=== PATIENT | female | born 1955 | race Hispanic/Latino ===

== ENCOUNTER 2019-08-23 08:54 | Inpatient (IN) | payer MEDICARE, BC ==
[2019-08-23] MEDS ORDERED: Ondansetron PF 4 MG/2 ML Vial ONE (08:59)
[2019-08-23] MEDS ORDERED: Dexamethasone 10 MG/ML VIAL ONE (09:16)
--- NOTE | 2019-08-23 09:16 | CT ---
Head CT without contrast 08/23/2019: Comparison: None HISTORY: Left facial droop TECHNIQUE: Axial CT imaging at 5 mm intervals from vertex through skull base without contrast FINDINGS: There is a large area of hypodensity with loss of francois-white differentiation involving the majority of the MCA territory on the right, evidence of right MCA infarction. This measures at least 9.5 cm in AP dimension and 4.8 cm in transverse dimension, involving the posterior and inferior right frontal lobe and of the majority of the right temporal lobe. There is no associated hemorrhage. There is mild mass effect with midline shift at the axial level of the septum pellucidum from right to left measuring in the 3 mm range. IMPRESSION: Evidence of acute infarction involving the majority of the MCA territory on the right. No associated hemorrhage. Mild midline shift from right to left. Short-term follow-up CT is thus advised. Results called to Dr. Hilton at 9:10 AM 08/23/2019.
[2019-08-23 09:47] LABS: #Lymphocytes 1.3 thou/uL (1.20-3.40); #Monocytes 0.6 thou/uL (0.11-0.59); #Neutrophils 8.8 thou/uL (1.40-6.50); %Basophils 0.1 % (0.0-1.0); %Eosinophils 0.1 % (0.0-10.0); %Lymphocytes 11.8 % (21.0-51.0); %Monocytes 5.7 % (0.0-10.0); %Neutrophils 82.3 % (42.0-75.0); Hemoglobin 14.1 g/dL (12.0-16.0); Mean Corpuscular HGB CONC 32.7 g/dL (32.0-36.0); Mean Corpuscular Hemoglobin 29.3 pg (27.0-31.0); Mean Corpuscular Volume 89.8 fL (78.0-98.0); Platelet Count 231 thou/uL (130-400); RBC Distribution Width 13.3 % (11.5-14.5); Red Blood Cell (RBC) Count 4.79 mill/uL (4.20-5.40); White Blood Cell (WBC) Count 10.7 thou/uL (4.8-10.8)
[2019-08-23 09:51] LABS: PTT 30.9 SEC (22.9-36.1); Prothrombin Time 13.4 SEC (12.0-14.7)
[2019-08-23 10:01] LABS: ALT (SGPT) 28 U/L (8-55); AST (SGOT) 24 U/L (5-34); Albumin 4.5 g/dL (3.4-4.8); Alkaline Phosphatase 84 U/L (40-110); Anion Gap 16 mmol/L (10-20); BUN (Urea Nitrogen) 21 mg/dL (9.8-20.1); Bilirubin, Total 0.4 mg/dL (0.2-1.2); Calc. Creatinine Clearance 0 mL/min (70-130); Calcium 9.6 mg/dL (7.8-10.44); Carbon Dioxide 24 mmol/L (23-31); Chloride 103 mmol/L (98-107); Estimated GFR-MDRD 63; Globulin 2.9 g/dL (2.4-3.5); Glucose 144 mg/dL (80-115); Potassium 3.8 mmol/L (3.5-5.1); Protein, Total 7.4 g/dL (6.0-8.3); Sodium 139 mmol/L (136-145)
[2019-08-23] MEDS ORDERED: Aspirin 300 MG Suppository ONE (10:17)
[2019-08-23 11:27] LABS: Bacteria/HPF 4+ HPF (None Seen); Bilirubin Negative (Negative); Blood, Urine Negative (Negative); Clarity Turbid (Clear); Glucose, Urine (Dipstick) Normal (Negative); Leukocyte 500 Leu/uL (Negative); Mucous/LPF Rare LPF (<2+); Nitrite Negative (Negative); Protein, Urine (Dipstick) 50 mg/dL (Neg-Trace); RBC/HPF 0-3 HPF (0-3); Squamous Epithelial None Seen HPF (0-3); Urobilinogen Normal mg/dL (Less than 2); WBC/HPF 21-50 HPF (0-3)
[2019-08-23] MEDS ORDERED: Digoxin 0.5 MG/2 ML AMP ONE (11:44)
[2019-08-23] MEDS ORDERED: Magnesium 2 GM/50 ML BAG (IN WATER) ONE (11:44)
[2019-08-23] MEDS ORDERED: Pantoprazole 40 MG VIAL ONE (14:21)
[2019-08-23] MEDS ORDERED: Ondansetron ODT 4 MG TAB SL PRN (15:45)
[2019-08-23] MEDS ORDERED: Acetaminophen 325 MG TAB PO PRN ×2 (15:45→15:50)
[2019-08-23] MEDS ORDERED: Ondansetron PF 4 MG/2 ML Vial IVP PRN ×2 (15:45→15:50)
[2019-08-23] MEDS ORDERED: Acetaminophen 650 MG Suppository PR PRN (15:50)
[2019-08-23] MEDS ORDERED: Guaifenesin DM 100-10/5 ML UDCUP PO PRN (15:50)
[2019-08-23] MEDS ORDERED: hydrALAZINE 20 MG/ML VIAL SLOW IVP PRN (15:50)
[2019-08-23] MEDS ORDERED: Senokot S 8.6-50 MG TAB PO PRN (15:50)
[2019-08-23] MEDS ORDERED: Labetalol HCl 100 MG/20 ML VIAL SLOW IVP PRN (15:50)
[2019-08-23] MEDS ORDERED: Ondansetron ODT 4 MG TAB PO PRN (15:50)
[2019-08-23 16:03] VITALS: BMI 46.8
[2019-08-23] MEDS ORDERED: Digoxin 0.5 MG/2 ML AMP SLOW IVP SCH (19:00)
--- NOTE | 2019-08-23 23:34 | CON ---
DATE OF CONSULTATION: 08/23/2019 CONSULTING PHYSICIAN: Hospitalist Service. IMPRESSION: 1. Right MCA stroke, likely secondary to a cardioembolic event. 2. Atrial fibrillation. 3. Obesity. 4. Hyperlipidemia. 5. Hypertension. 6. History of chronic vertigo. PLAN: 1. Repeat CT scan of the brain tomorrow. 2. Fluid restriction. 3. Keep head of bed elevated at least 30 degrees. 4. Start anticoagulation tomorrow if her CT is negative for any secondary hemorrhage. 5. Carotid Doppler. 6. Echocardiogram. 7. Speech therapy, physical therapy, and occupational therapy evaluations. HISTORY OF PRESENT ILLNESS: Ms. Holland is a 64-year-old woman, who awoke from sleep to find that she had her left hemiparesis. She was brought into the emergency room for evaluation. Her CT scan revealed an early area of ischemia involving the entire right MCA territory. She was noted to be in atrial fibrillation. Her blood pressure was under good control. She was admitted to the stroke unit. She has not had any stroke symptoms in the past. She is not complaining of any headache. She had some vertigo and nausea earlier that was brought on by movement. Apparently, this is a chronic issue with her. She has a DNR in place as she does not want to be on a ventilator. PAST MEDICAL HISTORY: As listed above. ALLERGIES: BACTRIM. SOCIAL HISTORY: No tobacco or alcohol use. FAMILY HISTORY: Noncontributory. MEDICATION LIST: Reviewed. REVIEW OF SYSTEMS: Ten-system review of systems is otherwise negative. PHYSICAL EXAMINATION: GENERAL: She is an obese, middle-aged woman, lying in bed, in no acute distress. VITAL SIGNS: Blood pressure 116/78, pulse 100, respirations 14, temperature 98.2. HEENT: Pupils are equal and reactive. Conjunctivae clear. Oropharynx clear. Cranium, normocephalic and atraumatic. NECK: Supple. EXTREMITIES: No cyanosis. NEUROLOGIC: She awakens easily, was conversant and follows commands appropriately. Her speech is fairly clear. She has a left facial droop. There may be some partial left visual field deficit that was somewhat inconsistently demonstrated. She has a dense hemiparesis on the left. She has significant sensory deficit of the left side as well. No abnormal movements were seen. Gait is not testable. EKG shows atrial fibrillation with a rapid ventricular response. LABORATORY DATA: Laboratory studies were reviewed. SUMMARY: This is an unfortunate middle-aged woman with fairly massive stroke. Hopefully, the cerebral edema will not get out of control to cause significant shift and herniation. I explained the gravity of the situation to her . They have an understanding and want to respect her wishes that she would not be placed on a ventilator if her respiratory status declined. I will follow up in her care. Job ID: [id number]
--- NOTE | 2019-08-24 01:00 | CON ---
DATE OF CONSULTATION: HISTORY OF PRESENT ILLNESS: The patient is an unfortunate 64-year-old woman, who presents with acute onset of left-sided weakness. The patient has a previous history of mitral valve prolapse. She has been followed previously at [facility], and seeing Dr. Taylor. She reports having occasional palpitations. She presented to the emergency room with acute onset of left-sided weakness. PAST MEDICAL HISTORY: Significant for; 1. Mitral valve prolapse. 2. Hypertension. 3. Obesity. PAST SURGICAL HISTORY: Had hernia surgery and cholecystectomy. SOCIAL HISTORY: Nonsmoker. FAMILY HISTORY: Positive family history of coronary artery disease. ALLERGIES: ALLERGIC TO BACTRIM AND TRIMETHOPRIM. MEDICATIONS: 1. Lipitor 10 at bedtime. 2. Metoprolol 100 b.i.d. 3. Losartan 100/25 daily. 4. Norvasc 10 daily. 5. Prilosec 10 daily. REVIEW OF SYSTEMS: Ten-point system otherwise unremarkable. PHYSICAL EXAMINATION: GENERAL: Obese woman, in no acute distress. VITAL SIGNS: Blood pressure 121/75. NECK: No jugular venous distention. LUNGS: Clear to auscultation. HEART: Irregular rate and rhythm. Normal S1, S2. No murmurs. ABDOMEN: Markedly distended. EXTREMITIES: Showed no edema. VASCULAR: Radial pulses are 2+. NEUROLOGIC: The patient has minimal movement in her left toes, has 0/5 strength in her left upper and lower extremities. LABORATORY RESULTS: White blood cell count 10.7, hemoglobin 14.1, hematocrit 43.0, platelets are 231. Her sodium was 139, potassium 3.8, chloride 103, bicarbonate 24, BUN 29, creatinine 0.9, glucose is 144. EKG revealed atrial fibrillation with rapid ventricular response, nonspecific ST abnormality. IMPRESSION: 1. Large cerebrovascular accident. 2. New onset atrial fibrillation. 3. Hypertension. 4. History of mitral valve prolapse. 5. Obesity. This patient presents with cerebrovascular accident. The patient is being treated with aspirin. She will need to be placed on long-term anticoagulation therapy. We will use digoxin and/or metoprolol to control heart rate. We will follow this patient with you through her hospitalization. Job ID: [id number]
--- NOTE | 2019-08-24 03:05 | PDOC.EVN ---
Event Note - Event Note Event Note: Notified yesterday evening at approximately 10 pm that patients family were concerned for episode of 19 second pause that occurred when patient receiving digoxin dose 0.25 mg. Per RN, HR was fluctuating between 90s to 120s on tele monitor. She did not receive the full dose, it was stopped immediately when she collapsed backwards onto the bed. Patients HR has remained in 90s since then and BP has been stable. Dr. Adkins was notified. remained concerned and though he was not in the room he states he feels the medication was given without monitoring of patients heart. He was reassured that the patient was being monitored by RN when medication was being administered and that HR was labile. Following discussion with on-call carrier packer, we decided to obtain digoxin level and discontinue morning dose of digoxin. Further recommendations as per Dr. Adkins. seems to be at ease with this plan. Continue to monitor. Patient resting comfortably when evaluated.
[2019-08-24 05:10] LABS: Anion Gap 13 mmol/L (10-20); BUN (Urea Nitrogen) 18 mg/dL (9.8-20.1); Calc. Creatinine Clearance 138 mL/min (70-130); Calcium 9.1 mg/dL (7.8-10.44); Carbon Dioxide 24 mmol/L (23-31); Cardiac Risk 3.6 (Less than 4.5); Chloride 105 mmol/L (98-107); Cholesterol 133 mg/dl (< 200 Desired); Estimated GFR-MDRD 71; Glucose 129 mg/dL (80-115); HDL Cholesterol 37 mg/dL (>60 Neg Risk); LDL Cholesterol, Calculated 82 mg/dL; Potassium 4.1 mmol/L (3.5-5.1); Sodium 138 mmol/L (136-145); Triglycerides 71 mg/dL (Less than 150)
[2019-08-24 05:24] LABS: Band 3 % (5-11); Hemoglobin 13.4 g/dL (12.0-16.0); Lymphocytes 14 % (21-51); MDiff Complete? YES; Mean Corpuscular HGB CONC 32.5 g/dL (32.0-36.0); Mean Corpuscular Hemoglobin 29.2 pg (27.0-31.0); Mean Corpuscular Volume 89.9 fL (78.0-98.0); Monocytes 3 % (0-10); Neutrophil 80 % (42-75); Platelet Count 238 thou/uL (130-400); Platelet Morphology Comment Appears Adequate; RBC Distribution Width 13.2 % (11.5-14.5); RBC Morphology Normal; Red Blood Cell (RBC) Count 4.58 mill/uL (4.20-5.40); White Blood Cell (WBC) Count 12.3 thou/uL (4.8-10.8)
--- NOTE | 2019-08-24 07:19 | HP ---
PRIMARY CARE PHYSICIAN: Dr. Alen Judge at [facility] when she is in town. When she is at home in [place], it is a PA named Liliane. CHIEF COMPLAINT: Left-sided weakness. HISTORY OF PRESENT ILLNESS: This is a 64-year-old white female with a past medical history of hypertension, hyperlipidemia, and mitral valve prolapse, and then about a month or two ago starting to have runs of palpitations diagnosed as atrial fibrillation by her PA in [place], not on any aspirin or anticoagulants. She had 2 or 3 runs of palpitations lasting for a significant period of time over the last 1 to 2 months, though none that she recognized the last day or two. She was staying at a hotel in [place] while doing some work at [employer], which she intermittently does. She was conversing with her over the phone last night during the football game, was not having any symptoms or difficulties, and around 11 o'clock last night she stopped responding to his texts. He thought she had gone to sleep, however, this morning she did not show up at work. They went to her hotel room and found her with left-sided weakness, left facial droop, and some confusion and slurred speech. The patient was taken to the emergency room. There she had a CT scan showing an acute ischemic stroke involving the majority of the right MCA territory without any associated hemorrhage. She was also found to be in atrial fibrillation with rapid ventricular rate up into the 150s. She was outside the window for tPA and so no tPA was given. She was within 24 hours, so Dr. Thapa was consulted from the emergency room. He looked at the CT scan and determined that she was too high of a risk for bleeding for him to attempt an embolectomy. The patient was given 300 mg of aspirin rectally and also a single dose of digoxin IV, which has helped to slow her rate down. She otherwise has a mild headache and reports that she forgot her Prilosec last night, so she is getting some reflux symptoms. No other complaints. REVIEW OF SYSTEMS: CONSTITUTIONAL: No fevers, no chills. EYES: No double vision or blurred vision. ENT: No congestion, drainage, or sore throat. CARDIOVASCULAR: See HPI. No chest pain. No current palpitations that she can feel. PULMONARY: No coughing, wheezing, or shortness of breath. GASTROINTESTINAL: She has some acid reflux in the back of her throat, but abdominal pain. No nausea or vomiting. No diarrhea or constipation. GENITOURINARY: No dysuria or hematuria. MUSCULOSKELETAL: No muscle aches or joint pains. SKIN: No rashes or lesions she has noted. NEUROLOGIC: See HPI. PAST MEDICAL HISTORY: 1. Hypertension. 2. Hyperlipidemia. 3. Mitral valve prolapse. 4. Atrial fibrillation as per HPI. PAST SURGICAL HISTORY: No known surgical procedures. SOCIAL HISTORY: No tobacco, alcohol, or illicit drug use. The patient is . Her is at the bedside. FAMILY HISTORY: Mother, aunt, and maternal grandmother all had breast or uterine cancer and dad of an acute myocardial infarction at 65 years old. ALLERGIES: NO KNOWN DRUG ALLERGIES. CURRENT MEDICATIONS: 1. Amlodipine 5 mg twice a day. 2. Atorvastatin 10 mg daily. 3. Losartan/hydrochlorothiazide 100/12.5 mg daily. 4. Metoprolol tartrate 100 mg daily. 5. Prilosec 40 mg daily. 6. Fluocinonide 0.5% topical cream used as needed. 7. Sleep-Mekhi 25 mg at night as needed. PHYSICAL EXAMINATION: VITAL SIGNS: Blood pressure 100/60, pulse running in the 90s to low 100s right now after the digoxin, respirations 16, temperature 97.9, O2 saturation 94% on room air. GENERAL: This is a well-developed obese white female, in no acute distress. HEENT: Pupils equal, round, and reactive to light. Oropharynx clear without lesions, erythema, or exudate. NECK: Supple. No lymphadenopathy. No thyroid nodules or enlargement. HEART: Irregularly irregular rhythm without murmurs, rubs, or gallops. Some mild tachycardia. LUNGS: Clear to auscultation bilaterally. No wheezes, crackles, or rhonchi. ABDOMEN: Soft, obese, nontender to palpation. Normoactive bowel sounds. No hepatosplenomegaly or other masses. EXTREMITIES: No clubbing, cyanosis, or edema. SKIN: No rashes or lesions. NEUROLOGIC: The patient has a left facial droop. She has complete paralysis of the left upper extremity. She does have some movement of the left lower extremity, is able to lift her leg off the bed a few millimeters and able to wiggle her toes a little bit after lots of encouragement. She does have some significant left-sided neglect and she has sensation loss on the entire left side of her body. The patient also has a left-sided deviation of her tongue, some mild slurred speech, though easy to understand. PSYCHIATRIC: The patient is a little sleepy but easily arousable. She is oriented to person. She knows she is in the emergency room though she gets confused about if she is in [place] or [place]. She knows it is 2019. She could not name the President and she thought it was October. She was able to give some of the history, though I had to get some of it from her as well and she kept getting confused about who thought she was in [place], who thought she was in [place] and where she actually was, but otherwise gave me some history about her medical history. LABORATORY DATA: CBC within normal limits. Coagulation profile normal. Complete metabolic panel notable for a BUN of 21 and a glucose of 144. Troponin negative x1. Urinalysis with 500 leukocyte esterase, 21 to 50 white blood cells, and 4+ bacteria. CT of the brain, I did review the films along with the radiologist's report. It does show evidence of acute infarction involving the majority of the MCA territory on the right without associated hemorrhage, mild midline shift from right to left. EKG shows atrial fibrillation in the 120s with rapid ventricular response and no evidence of ST-segment elevation or depression. ASSESSMENT: 1. Severe acute ischemic stroke of the right MCA distribution. The patient is beyond the tPA window and the stroke is too large to do an embolectomy, treating with aspirin. We will hold on other anticoagulants until we recheck a CT scan at 24 hours to make sure that there is no secondary bleeding. I did speak with Dr. Guerrero about the patient and confirmed this plan with him. 2. Atrial fibrillation with rapid ventricular response. This is improved some with digoxin. I have consulted Dr. Adkins to assist with management of this. Would like to either restart some of her beta-mark or start her on diltiazem, but her blood pressure is not allowing it at this point. We will also need to start her on full anticoagulation if her next CT scan has no evidence of hemorrhage. 3. Hypertension. Holding antihypertensives for now as she is actually on the lower side. If she does start to feel hypertensive, we will allow some compensatory hypertension. We will give p.r.n. medications for any severe elevations of blood pressure. 4. Hyperlipidemia. We will resume the patient's statin. She actually probably can be used to have her dose increased. 5. Gastrointestinal prophylaxis and reflux. We will resume the patient's PPI. We will give protein Protonix IV for now until she can take p.o. 6. Slurred speech, question of dysphasia. We will have the nurses do a bedside swallow test on her. If she states she can start taking some sips of water with medicines, then we will get Speech therapy in to evaluate her. 7. Deep venous thrombosis prophylaxis. The patient on sequential compression devices while in bed. Eventually, she will need to be fully anticoagulated. CODE STATUS: I did discuss this with the patient with her who is her medical decision maker. She had a hard time understanding the concepts that I was asking about due to her mild confusion from the stroke. However, in speaking with her and her , they came to a decision that they did not want to have any intubation, chest compressions or shocks done, that they want a full medical treatment for the stroke, but should she decompensate, they did not want any extreme measures like putting her on a ventilator. So she is a do not attempt resuscitation. As such, we are going to admit her to the stroke unit instead of the ICU. Job ID: [id number]
[2019-08-24] MEDS ORDERED: Digoxin 0.5 MG/2 ML AMP SLOW IVP SCH (09:00)
[2019-08-24] MEDS ORDERED: Prevnar 13-Val Conj/PF 0.5 ML SYRINGE IM ONE (09:00)
--- NOTE | 2019-08-24 09:09 | CT ---
Head CT without contrast 08/24/2019: COMPARISON: 08/23/2019 HISTORY: Acute stroke, assess for intracranial hemorrhage TECHNIQUE: Axial CT imaging at 5 mm intervals from vertex through skull base without contrast FINDINGS: There has been interval increase in the conspicuity of the cytotoxic edema within the MCA t erritory on the right consistent with extensive right MCA infarction. No associated intracranial hemorrhage. The associated mass effect has worsened when compared to the prior exam. At the axial lev el of the septum pellucidum there is 7 mm of right to left midline shift, worsened from 3-4 millimeters on the prior exam. There is also worsening effacement of the right lateral ventricle with mild prominence of the left lateral ventricle. Imaged paranasal sinuses and mastoid air cells are well-aerated. No displaced calvarial fracture. IMPRESSION: Worsening cytotoxic edema associated with acute right MCA infarction. There is worsening mass effect with midline shift now measuring 7 mm from right to left.
[2019-08-24] MEDS: Pantoprazole 40 MG VIAL IVP SCH (09:55)
[2019-08-24] MEDS: Aspirin 300 MG Suppository PR SCH (09:57)
--- NOTE | 2019-08-24 10:20 | PDOC.P[place] ---
Palliative Care Consult - Consult Details Requesting Physician: Dr Winter Reason for Consult: family support Family Members Present: , patient two daughters - Pertinent HPI Mrs Holland is a 64 year old female who [place], last texted her the night of 06/22/2020, when she did not arrive for work the morning of 08/23 they called the hotel and EMS was called secondary to pronounced left sided weakness, confusion and slurred speech. She as taken to the emergency room where an acute ischemic stroke was noted inclusive of the majority of the right mCA territory without hemorrhage, also noted to be in afib. The patient expressed she does not want any resuscitative measures, therefore she was placed on tele. Overnight patient had cardiac episode, and follow up CT identified increase in cytotoxic edema secondary to the acute right MCA infarction, measuring 7cm from right to left. No tPA and too high risk for embolectomy related to bleeding. - Pertinent PMH HTN, HDL, Morbid obesity, Mitral valve prolapse, Atrial Fib - Social History Smoking Status: Never smoker Smoking: no tobacco exposure Alcohol Use: none Drug Use History: none Living Situation: - Medications MAR Reviewed: Yes - Allergies Allergies/Adverse Reactions: Allergies Allergy/AdvReac Type Severity Reaction Status Date / Time sulfamethoxazole Allergy Verified 08/23/19 16:07 [From Bactrim] trimethoprim [From Bactrim] Allergy Verified 08/23/19 16:07 - Subjective Resting, hob elevated 30 degrees. Does not open eyes by choice, but responds verbally. and two daughters at bedside. - ROS Constitutional: alert, weakness Eyes: other (denies visual changes) ENT: difficulty swallowing, other Respiratory: other (negative for cough, difficulity breathing) Gastrointestinal: other (deneis nausea, vomiting) Musculoskeletal: other (negative for pain to extremities) Neurological: change in speech, headache, other (left sided weakness) - Objective Vital Signs: Vital Signs - Most Recent Temp Pulse Resp BP Pulse Ox 98.1 F 99 15 117/58 L 93 L 08/24/19 07:48 08/24/19 07:48 08/24/19 07:48 08/24/19 07:48 08/24/19 10:00 Palliative Performance Scale: 40 (Bed bound, only secondary to current suggestion for CVA) - Physical Exam Constitutional: ill appearing, mild distress HEENT: moist MMs, sclera anicteric Respiratory: no wheezing, unlabored breathing, diminished lung sound Cardiovascular: irregular Gastrointestinal: soft, non-tender, positive bowel sounds Musculoskeletal: no cyanosis, no clubbing Deviation from normal: left sided weakness, no deficit to right side Skin: cap refill <2 seconds, no lesions, no rash Psychiatric: A&O x 3 - Problem List (1) Palliative care encounter Code(s): Z51.5 - ENCOUNTER FOR PALLIATIVE CARE Current Visit: Yes Status: Acute (2) Acute ischemic right MCA stroke Code(s): I63.511 - CEREB INFRC D/T UNSP OCCLS OR STENOS OF RIGHT MID CEREB ART Current Visit: Yes Status: Acute (3) Atrial fibrillation with RVR Code(s): I48.91 - UNSPECIFIED ATRIAL FIBRILLATION Current Visit: Yes Status : Acute (4) Hypertension Code(s): I10 - ESSENTIAL (PRIMARY) HYPERTENSION Current Visit: Yes Status: Acute (5) Elevated HDL Code(s): E78.89 - OTHER LIPOPROTEIN METABOLISM DISORDERS Current Visit: Yes Status: Acute (6) Morbid obesity Code(s): E66.01 - MORBID (SEVERE) OBESITY DUE TO EXCESS CALORIES Current Visit : Yes Status: Acute - Plan/Recommendations Plan: Visited with family and patient. Patient verbal with soft speech, and "thumbs up " to communicate. They appear comfortable with care at this time and are hopeful for improvement today. Confirmed wishes of no resuscitation measures, CT identified increase in cerebral edema. Therapeutic listening and emotional support provided. Encouraged to minimize stimuli to promote optimal environment.Speech therapy also present. Spiritual care consult placed for additional support. Please see Palliative Care RN notes in note section for further information. [50] minutes spent on this encounter with >50% of the time in counseling and coordination of care. Thank you for this very appropriate consult.
--- NOTE | 2019-08-24 13:28 | PDOC.HOSPP ---
- Subjective Encounter Date: 08/24/19 Encounter Time: 13:25 Subjective: f/u for large R MCA territorial embolic CVA with increased edema on CT imaging this am. Still has R hemiparesis and visual defects. Taking ice chips. - Objective Vital Signs & Weight: Vital Signs (12 hours) Temp Pulse Resp BP Pulse Ox 08/24/19 11:30 98.4 F 98 14 118/61 94 L 08/24/19 10:00 93 L 08/24/19 07:55 93 L 08/24/19 07:48 98.1 F 99 15 117/58 L 93 L 08/24/19 04:00 99.5 F 102 H 16 100/56 L 95 Weight Weight 281 lb 7 oz Result Diagrams: 08/24/19 04:32 08/24/19 04:32 Additional Labs: Microbiology 08/23/19 16:54 Urine clean catch Urine Culture - Preliminary Gram Negative [facility] Laboratory Tests 08/23/19 08/23/19 08/23/19 09:02 09:02 22:25 WBC 10.7 Neutrophils % 82.3 H Neutrophils % (Manual) BUN 21 H Creatinine 0.90 Triglycerides Cholesterol LDL Cholesterol, Calc HDL Cholesterol Digoxin 0.70 L 08/24/19 08/24/19 04:32 04:32 WBC Neutrophils % Neutrophils % (Manual) 80 H BUN Creatinine Triglycerides 71 Cholesterol 133 LDL Cholesterol, Calc 82 HDL Cholesterol 37 Digoxin Radiology Reviewed by me: Yes (CT brain - increased edema with R to L 7mm shift) EKG Reviewed by me: Yes (Tele - A-fib in low 100's) Hospitalist ROS - Medication Medications: Active Medications Generic Name Dose Route Start Last Admin Trade Name Flora PRN Reason Stop Dose Admin Aspirin 300 mg 08/24/19 09:00 08/24/19 09:57 Aspirin AL 300 mg DAILY CHRISTOPHER Administration Pantoprazole Sodium 40 mg 08/24/19 09:00 08/24/19 09:55 Protonix IVP 40 mg DAILY CHRISTOPHER Administration - Exam General Appearance: NAD, awake alert Eye: PERRL, anicteric sclera ENT: normocephalic atraumatic, no oropharyngeal lesions Neck: supple, symmetric, no JVD, no thyromegaly Heart: no gallops, no rubs, normal peripheral pulses, irregular Respiratory: CTAB, no wheezes, no rales, no ronchi, normal chest expansion Gastrointestinal: soft, non-tender, non-distended, normal bowel sounds, no palpable masses Extremities: no cyanosis, no clubbing, no edema Skin: normal turgor, no lesions Neurological - other findings: R hemiparesis, visual field defect, dysphagia Musculoskeletal: normal tone, generalized weakness Psychiatric: A&O x 3, flat affect Hosp A/P (1) Acute ischemic right MCA stroke Code(s): I63.511 - CEREB INFRC D/T UNSP OCCLS OR STENOS OF RIGHT MID CEREB ART Status: Acute Plan: Likely embolic, start Lovenox 120mg sc q12h, + increasing cerebral edema associated with CVA, start Dexamethasone IV today (2) Cerebral edema Code(s): G93.6 - CEREBRAL EDEMA Status: Acute Plan: Secondary to #1, start Dexamethasone, consider NS evaluation, serial CT brain imaging (3) UTI (urinary tract infection) Status: Acute Plan: GNR, start Rocephin 2gm IV daily (4) Atrial fibrillation with RVR Code(s): I48.91 - UNSPECIFIED ATRIAL FIBRILLATION Status: Acute Plan: Rate variable, start Cardizem 5mg IV infusion, start Lovenox (5) Hypertension Code(s): I10 - ESSENTIAL (PRIMARY) HYPERTENSION Status: Chronic Qualifiers: Hypertension type: essential hypertension Qualified Code(s): I10 - Essential (primary) hypertension Plan: Resume home BP regimen when tolerating po intake - Plan plan discussed w/ family, continue antibiotics, PT/OT, social insurance specialist, speech therapy, DVT proph w/SCDs Start Dexamethasone 10mg IV now then 4mg IV q6h Start Rocephin 2gm IV daily Start 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
[2019-08-24] MEDS ORDERED: Dexamethasone 10 MG in Sodium Chloride 0.9% 50 ML IVPB SCH (13:30)
[2019-08-24] MEDS: cefTRIAXone\\ROCEPHIN 2 GM in Sodium Chloride 0.9% 100 ML IVPB SCH (14:55)
[2019-08-24] MEDS: Diltiazem 125 MG in Sodium Chloride 0.9% 100 ML IVPB SCH (17:39)
[2019-08-24] MEDS: Dexamethasone 4 MG in Sodium Chloride 0.9% 50 ML IVPB SCH (21:17)
[2019-08-24] MEDS: Enoxaparin Sodium 120 MG/0.8 ML SYRINGE SC SCH (21:18)
[2019-08-24] MEDS: Atorvastatin Calcium 10 MG TAB PO SCH (21:18)
[2019-08-25] MEDS: Dexamethasone 4 MG in Sodium Chloride 0.9% 50 ML IVPB SCH ×4 (03:16→21:09)
--- NOTE | 2019-08-25 09:19 | CT ---
EXAM: CT brain without contrast HISTORY: Right MCA stroke with midline shift COMPARISON: 08/24/2019 TECHNIQUE: Multiple contiguous axial images were obtained and a CT of the brain without contrast. FINDINGS: There is an evolving infarction in the right MCA distribution. There is stable mild shift o f midline to the left. No downward herniation is seen. There is no evidence of hydrocephalus, intracranial hemorrhage, or extra-axial fluid collection. The calvarium and overlying soft tissues are unremarkable. The visualized paranasal sinuses and masto id air cells are well aerated. IMPRESSION: Evolving right MCA distribution infarction
[2019-08-25] MEDS: Aspirin 300 MG Suppository PR SCH (09:58)
[2019-08-25] MEDS: Pantoprazole 40 MG VIAL IVP SCH (10:02)
[2019-08-25] MEDS: Enoxaparin Sodium 120 MG/0.8 ML SYRINGE SC SCH ×2 (10:02→21:09)
[2019-08-25] MEDS: cefTRIAXone\\ROCEPHIN 2 GM in Sodium Chloride 0.9% 100 ML IVPB SCH (14:33)
[2019-08-25] MEDS: Diltiazem 125 MG in Sodium Chloride 0.9% 100 ML IVPB SCH (15:54)
--- NOTE | 2019-08-25 18:25 | PDOC.HOSPP ---
- Subjective Encounter Date: 08/25/19 Encounter Time: 18:25 Subjective: f/u for large R MCA territorial embolic CVA in context of A-fib. No new events reported but remains NPO per [employer] recommendations until re-evaluation in next 24h. Receiving Lovenox/ASA/Lipitor. Remains on Cardizem gtt with rate- controlled A-fib - Objective Vital Signs & Weight: Vital Signs (12 hours) Temp Pulse Pulse Pulse Resp BP BP 08/25/19 15:39 98.5 F 96 12 08/25/19 13:24 95 109 H 131/77 155/81 H 08/25/19 11:46 98.1 F 98 10 L 08/25/19 07:42 97.6 F 80 18 08/25/19 07:34 BP Pulse Ox 08/25/19 15:39 125/75 95 08/25/19 13:24 08/25/19 11:46 155/87 H 94 L 08/25/19 07:42 123/75 96 08/25/19 07:34 94 L Weight Admit Weight 281 lb Weight 281 lb 7 oz I&O: 08/24/19 08/25/19 08/26/19 06:59 06:59 06:59 Intake Total 595 Output Total 1325 Balance -730 Result Diagrams: 08/24/19 04:32 08/24/19 04:32 Additional Labs: Microbiology 08/23/19 16:54 Urine clean catch Urine Culture - Final Proteus mirabilis 08/23/19 16:54 Urine clean catch Urine Culture - Preliminary Gram Negative [facility] Tests 08/23/19 08/23/19 08/23/19 09:02 09:02 22:25 WBC 10.7 Neutrophils % 82.3 H Neutrophils % (Manual) BUN 21 H Creatinine 0.90 Triglycerides Cholesterol LDL Cholesterol, Calc HDL Cholesterol Digoxin 0.70 L 08/24/19 08/24/19 04:32 04:32 WBC Neutrophils % Neutrophils % (Manual) 80 H BUN Creatinine Triglycerides 71 Cholesterol 133 LDL Cholesterol, Calc 82 HDL Cholesterol 37 Digoxin Radiology Reviewed by me: Yes (CT brain - R MCA territorial edema, no herniation ) EKG Reviewed by me: Yes (Tele - A-fib in 80's) Hospitalist ROS - Medication Medications: Active Medications Generic Name Dose Route Start Last Admin Trade Name Freq PRN Reason Stop Dose Admin Aspirin 300 mg 08/24/19 09:00 08/25/19 09:58 Aspirin NC 300 mg DAILY [facility] Administration Atorvastatin Calcium 10 mg 08/24/19 21:00 08/24/19 21:18 Lipitor PO Not Given HS [facility] Enoxaparin Sodium 120 mg 08/24/19 21:00 08/25/19 10:02 Lovenox SC 120 mg 0900,2100 [facility] Administration Ceftriaxone Sodium 2 gm/ 100 mls @ 200 mls/hr 08/24/19 14:00 08/25/19 14:33 Sodium Chloride IVPB 100 mls 1400 [facility] Administration Dexamethasone 4 mg/ Sodium 51 mls @ 100 mls/hr 08/24/19 20:00 08/25/19 13:54 Chloride IVPB 51 mls 0200,0800,1400,2000 [facility] Administration Diltiazem HCl 125 mg/ Sodium 125 mls @ 5 mls/hr 08/24/19 14:00 08/25/19 15:54 Chloride IVPB 125 mls INF [facility] Administration Protocol 5 MG/HR Pantoprazole Sodium 40 mg 08/24/19 09:00 08/25/19 10:02 Protonix IVP 40 mg DAILY [facility] Administration - Exam General Appearance: NAD, awake alert Eye: PERRL, anicteric sclera ENT: normocephalic atraumatic, no oropharyngeal lesions Neck: supple, symmetric, no JVD, no thyromegaly, no lymphadenopathy Heart: no gallops, no rubs, normal peripheral pulses, irregular Respiratory: CTAB, no wheezes, no rales, no ronchi, normal chest expansion Gastrointestinal: soft, non-tender, non-distended, normal bowel sounds Extremities: no cyanosis, no clubbing, no edema Skin: normal turgor, no lesions Neurological: no new deficit Neurological - other findings: L hemiparesis, dysphagia Musculoskeletal: generalized weakness Psychiatric: A&O x 3 Hosp A/P (1) Acute ischemic right MCA stroke Code(s): I63.511 - CEREB INFRC D/T UNSP OCCLS OR STENOS OF RIGHT MID CEREB ART Status: Acute Plan: Continue Lovenox, ASA, general stroke protocol, continue Dexamethasone for cerebral edema (2) Cerebral edema Code(s): G93.6 - CEREBRAL EDEMA Status: Acute Plan: See #1 above (3) UTI (urinary tract infection) Status: Acute Plan: Proteus spp on cx, continue Rocephin (4) Atrial fibrillation with RVR Code(s): I48.91 - UNSPECIFIED ATRIAL FIBRILLATION Status: Acute Plan: Rate improved with Cardizem gtt, continue another 24h then initiate po rate- control (5) Hypertension Code(s): I10 - ESSENTIAL (PRIMARY) HYPERTENSION Status: Chronic Qualifiers: Hypertension type: essential hypertension Qualified Code(s): I10 - Essential (primary) hypertension - Plan plan discussed w/ family, continue antibiotics, PT/OT, family welfare social work professor, speech therapy, DVT proph w/SCDs Continue Dexamethasone 4mg IV q6h Continue Rocephin 2gm IV daily Lovenox 120mg sc BID Continue Cardizem gtt [employer] daily evaluation PT/OT for mobilization Rehab options pending
[2019-08-25] MEDS: Atorvastatin Calcium 10 MG TAB PO SCH (20:46)
[2019-08-26] MEDS: Dexamethasone 4 MG in Sodium Chloride 0.9% 50 ML IVPB SCH ×4 (02:18→21:04)
[2019-08-26] MEDS: Enoxaparin Sodium 120 MG/0.8 ML SYRINGE SC SCH ×2 (08:57→21:04)
[2019-08-26] MEDS: Aspirin 300 MG Suppository PR SCH (08:57)
[2019-08-26] MEDS ORDERED: Artificial Tear Sol 15 ML BOT EA EYE PRN (09:51)
[2019-08-26] MEDS ORDERED: BIOTENE MOUTH SPRAY 44.3 ML MM PRN (09:52)
--- NOTE | 2019-08-26 09:59 | PDOC.PALPN ---
Palliative Progress Note - Subjective Family at bedside (Daughter and ), patient verbal, delayed. Complains of dry eyes, mildly dry mouth. - Objective Vital Signs: Vital Signs - Most Recent Temp Pulse Resp BP Pulse Ox 98.0 F 82 22 H 124/80 96 08/26/19 07:37 08/26/19 07:37 08/26/19 07:37 08/26/19 07:37 08/26/19 07:37 - Physical Exam Constitutional: NAD HEENT: sclera anicteric Respiratory: clear to auscultation bilateral, unlabored breathing, diminished lung sound Cardiovascular: irregular Gastrointestinal: soft, non-tender, positive bowel sounds Genitourinary: alonso catheter Musculoskeletal: no cyanosis, no clubbing Deviation from normal: left hemiplegia, dysphagia Skin: cap refill <2 seconds, no lesions Psychiatric: A&O x 3 - Assessment (1) Palliative care encounter Code(s): Z51.5 - ENCOUNTER FOR PALLIATIVE CARE Current Visit: Yes Status: Acute (2) Acute ischemic right MCA stroke Code(s): I63.511 - CEREB INFRC D/T UNSP OCCLS OR STENOS OF RIGHT MID CEREB ART Current Visit: Yes Status: Acute (3) Atrial fibrillation with RVR Code(s): I48.91 - UNSPECIFIED ATRIAL FIBRILLATION Current Visit: Yes Status : Acute (4) Hypertension Code(s): I10 - ESSENTIAL (PRIMARY) HYPERTENSION Current Visit: Yes Status: Chronic Qualifiers: Hypertension type: essential hypertension Qualified Code(s): I10 - Essential (primary) hypertension (5) Elevated HDL Code(s): E78.89 - OTHER LIPOPROTEIN METABOLISM DISORDERS Current Visit: Yes Status: Deleted (6) Morbid obesity Code(s): E66.01 - MORBID (SEVERE) OBESITY DUE TO EXCESS CALORIES Current Visit : Yes Status: Acute - Plan Plan: Ordered artificial tears and biotene. Patients favorite things are her dogs and playing games on her phone. She has two small dogs, her states that if she could see her pets that would be the best therapy. Communicated with Roby Frye RN Palliative to attempt to coordinate pet therapy. Patient to have swallow study today, family and patient hopeful for rehab and meaningful recovery. Strong family support. [40] minutes spent on this encounter with >50% of the time in counseling and coordination of care. - ROS Constitutional: weakness Eyes: other (dry sclera) ENT: dry mouth, difficulty swallowing Respiratory: other (negative for shortness of breath, cough) Cardiology: other (negative for chest pain, palpitations) Neurological: change in speech
--- NOTE | 2019-08-26 11:42 | RAD ---
MODIFIED BARIUM SWALLOW: HISTORY: Dysphagia following cerebral infarct. EXPOSURE: 1.7 minutes, 82.6 mGy*^m2. FINDINGS: In the presence of speech pathologist, the patient was administered thin liquid, thick liquid, nectar thick, pudding and solid consistencies. There is premature spillage into the piriform sinuses and vallecula. Minimal penetration is suggested with the thin liquid consistencies, when using a straw. There is also evidence of spillage from the oral cavity, along the chin. Barium tablet did pass with administration of puree thickened consistency. IMPRESSION: Please of a speech pathologist report for feeding recommendation. Transcribed Date/Time: 08/26/2019 11:49 AM
[2019-08-26] MEDS: cefTRIAXone\\ROCEPHIN 2 GM in Sodium Chloride 0.9% 100 ML IVPB SCH (15:03)
--- NOTE | 2019-08-26 15:04 | PDOC.HOSPP ---
- Subjective Encounter Date: 08/26/19 Encounter Time: 09:20 Subjective: pt up in bed no complains, family at bedside. she still has her Cardizem drip. - Objective Vital Signs & Weight: Vital Signs (12 hours) Temp Pulse Pulse Pulse Resp BP BP 08/26/19 13:40 94 83 152/82 H 139/79 08/26/19 12:40 97.9 F 89 20 08/26/19 09:49 107 H 75 123/93 H 112/64 08/26/19 08:57 08/26/19 07:37 98.0 F 82 22 H 08/26/19 04:00 98.7 F 82 18 BP Pulse Ox 08/26/19 13:40 08/26/19 12:40 127/81 96 08/26/19 09:49 08/26/19 08:57 96 08/26/19 07:37 124/80 96 08/26/19 04:00 117/62 92 L Weight Admit Weight 281 lb Weight 281 lb 7 oz I&O: 08/25/19 08/26/19 08/27/19 06:59 06:59 06:59 Intake Total 595 Output Total 1325 Balance -730 Result Diagrams: 08/24/19 04:32 08/24/19 04:32 Hospitalist ROS - Review of Systems Cardiovascular: denies: chest pain, palpitations, orthopnea, paroxysmal noc. dyspnea, edema, light headedness, other Gastrointestinal: denies: nausea, vomiting, abdominal pain, diarrhea, constipation, melena, hematochezia, other Genitourinary: denies: dysuria, frequency, incontinence, hematuria, retention, other - Medication Medications: Active Medications Generic Name Dose Route Start Last Admin Trade Name Freq PRN Reason Stop Dose Admin Aspirin 300 mg 08/24/19 09:00 08/26/19 08:57 Aspirin MS 300 mg DAILY [facility] Administration Atorvastatin Calcium 10 mg 08/24/19 21:00 08/25/19 20:46 Lipitor PO Not Given HS [facility] Enoxaparin Sodium 120 mg 08/24/19 21:00 08/26/19 08:57 Lovenox SC 120 mg 0900,2100 [facility] Administration Ceftriaxone Sodium 2 gm/ 100 mls @ 200 mls/hr 08/24/19 14:00 08/25/19 14:33 Sodium Chloride IVPB 100 mls 1400 [facility] Administration Dexamethasone 4 mg/ Sodium 51 mls @ 100 mls/hr 08/24/19 20:00 08/26/19 14:02 Chloride IVPB 51 mls 0200,0800,1400,2000 [facility] Administration Diltiazem HCl 125 mg/ Sodium 125 mls @ 5 mls/hr 08/24/19 14:00 08/25/19 15:54 Chloride IVPB 125 mls INF [facility] Administration Protocol 5 MG/HR Pantoprazole Sodium 40 mg 08/26/19 09:00 08/26/19 09:09 Protonix PO 40 mg DAILY [facility] Administration - Exam Neck: negative: supple, symmetric, no JVD, no thyromegaly, no lymphadenopathy, no carotid bruit, JVD Heart: negative: RRR, no murmur, no gallops, no rubs, normal peripheral pulses, irregular, diminshed peripheral pulses, murmur present, II/IV, III/IV Respiratory: negative: CTAB, no wheezes, no rales, no ronchi, normal chest expansion, no tachypnea, normal percussion, rales, rhonchi, tachypneic, wheezes Gastrointestinal: negative: soft, non-tender, non-distended, normal bowel sounds , no palpable masses, no hepatomegaly, no splenomegaly, no bruit, no guarding, no rigidity, tender to palpation, distended, diminished bowl sounds, voluntary guarding Extremities - other findings: left side weakness Hosp A/P (1) Acute ischemic right MCA stroke Code(s): I63.511 - CEREB INFRC D/T UNSP OCCLS OR STENOS OF RIGHT MID CEREB ART Status: Acute (2) Atrial fibrillation with RVR Code(s): I48.91 - UNSPECIFIED ATRIAL FIBRILLATION Status: Acute (3) Morbid obesity Code(s): E66.01 - MORBID (SEVERE) OBESITY DUE TO EXCESS CALORIES Status: Acute (4) UTI (urinary tract infection) Status: Acute (5) Hypertension Code(s): I10 - ESSENTIAL (PRIMARY) HYPERTENSION Status: Chronic Qualifiers: Hypertension type: essential hypertension Qualified Code(s): I10 - Essential (primary) hypertension (6) UTI (urinary tract infection) Status: Acute - Plan rate controlled on cardizam. continue AC. pt going for swallow eval. will continue abx for her uti. possible will try to remove alonso.
[2019-08-26] MEDS: Diltiazem 125 MG in Sodium Chloride 0.9% 100 ML IVPB SCH (17:34)
[2019-08-26] MEDS: Atorvastatin Calcium 10 MG TAB PO SCH (21:05)
[2019-08-27] MEDS: Dexamethasone 4 MG in Sodium Chloride 0.9% 50 ML IVPB SCH ×3 (02:24→21:57)
[2019-08-27] MEDS: Aspirin 300 MG Suppository PR SCH (08:44)
[2019-08-27] MEDS: Enoxaparin Sodium 120 MG/0.8 ML SYRINGE SC SCH ×2 (08:51→21:58)
[2019-08-27] MEDS ORDERED: Prevnar 13-Val Conj/PF 0.5 ML SYRINGE IM ONE (09:00)
--- NOTE | 2019-08-27 11:10 | PDOC.CPN ---
- Subjective Date: 08/27/19 Time: 11:15 Interval history: The pt seen and examined. No overnight events. No cardiac complaints. - Objective Allergies/Adverse Reactions: Allergies Allergy/AdvReac Type Severity Reaction Status Date / Time sulfamethoxazole Allergy Verified 08/23/19 16:07 [From Bactrim] trimethoprim [From Bactrim] Allergy Verified 08/23/19 16:07 Visit Medications: Current Medications Acetaminophen (Tylenol) 650 mg PO Q4H PRN PRN Reason: Headache/Fever/Mild Pain (1-3) Acetaminophen (Tylenol) 650 mg AL Q4H PRN PRN Reason: Headache/Fever/Mild Pain (1-3) Artificial Tears (Liquitears 15ml Bottle) 2 drop EA EYE QIDPRN PRN PRN Reason: Dry Eyes Last Admin: 08/26/19 17:34 Dose: 2 drop Aspirin (Aspirin) 300 mg AL DAILY [facility] Last Admin: 08/27/19 08:44 Dose: 300 mg Atorvastatin Calcium (Lipitor) 10 mg PO HS [facility] Last Admin: 08/26/19 21:05 Dose: 10 mg Enoxaparin Sodium (Lovenox) 120 mg SC 0900,2100 [facility] Last Admin: 08/27/19 08:51 Dose: 120 mg Guaifenesin/Dextromethorphan (Robitussin Dm) 15 ml PO Q4H PRN PRN Reason: Cough Hydralazine HCl (Apresoline) 10 mg SLOW IVP Q4H PRN PRN Reason: BP > 220/110 Ceftriaxone Sodium 2 gm/ (Sodium Chloride) 100 mls @ 200 mls/hr IVPB 1400 [facility] Last Admin: 08/26/19 15:03 Dose: 100 mls Dexamethasone 4 mg/ Sodium (Chloride) 51 mls @ 100 mls/hr IVPB 0200,0800,1400, 2000 [facility] Last Admin: 08/27/19 08:50 Dose: 51 mls Diltiazem HCl 125 mg/ Sodium (Chloride) 125 mls @ 5 mls/hr IVPB INF [facility]; Protocol Last Admin: 08/26/19 17:34 Dose: 125 mls Labetalol HCl (Normodyne) 20 mg SLOW IVP Q1H PRN PRN Reason: BP > 220/110 Miscellaneous Medication (Biotene Moisturizing Mouth) 0 ml MM PRN PRN PRN Reason: Dry Mouth Last Admin: 08/26/19 17:36 Dose: 1 spr Ondansetron HCl (Zofran Odt) 4 mg PO Q6H PRN PRN Reason: Nausea/Vomiting Ondansetron HCl (Zofran) 4 mg IVP Q6H PRN PRN Reason: Nausea/Vomiting Pantoprazole Sodium (Protonix) 40 mg PO DAILY [facility] Last Admin: 08/27/19 08:50 Dose: 40 mg Senna/Docusate Sodium (Senokot S) 2 tab PO BID PRN PRN Reason: Constipation Sodium Chloride (Flush - Normal Saline) 10 ml IVF PRN PRN PRN Reason: Saline Flush Last Admin: 08/27/19 08:51 Dose: 10 ml Vital Signs & Weight: Vital Signs Temp Pulse Pulse Pulse Resp BP BP 08/27/19 09:43 87 85 116/72 133/78 08/27/19 08:44 08/27/19 08:00 97.5 F L 85 20 08/27/19 03:56 97.8 F 86 18 08/26/19 23:50 98 F 68 20 BP Pulse Ox 08/27/19 09:43 08/27/19 08:44 99 08/27/19 08:00 110/72 99 08/27/19 03:56 98/65 96 08/26/19 23:50 131/71 95 Admit Weight 281 lb Weight 281 lb 7 oz - Physical Exam General: alert & oriented x3 Neck: supple neck Cardiac: irregularly regular Lungs: decreased breath sounds Neuro: other (numbness and unable to feel to LLE) Extremities: no edema - Labs Result Diagrams: 08/24/19 04:32 08/24/19 04:32 Troponin/CKMB Troponin I Less than 0.010 ng/mL (< 0.028) 08/23/19 09:02 - Telemetry Supraventricular conduction: atrial fibrillation - Assessment/Plan Assessment/Plan: 1. Afib with RVR - well controlled HR with Diltiazem 5mg/h; on Lovenox 120mg BID which will be changed to PO OAC 2. Acute ischemic right MCA stroke with Lt side weakness 3. HTN - stable 4. UTI 5. Morbid obesity MAR reviewed * Echo on 08/24/2019 with EF 50-55%, mod dilated LA, mod-severe TR, and dilated IVC * Pérez' pt
--- NOTE | 2019-08-27 14:23 | PDOC.HOSPP ---
- Subjective Encounter Date: 08/27/19 Encounter Time: 09:00 Subjective: pt up in bed no complains - Objective Vital Signs & Weight: Vital Signs (12 hours) Temp Pulse Pulse Pulse Resp BP BP 08/27/19 11:46 97.9 F 95 15 08/27/19 09:43 87 85 116/72 133/78 08/27/19 08:44 08/27/19 08:00 97.5 F L 85 20 08/27/19 03:56 97.8 F 86 18 BP Pulse Ox 08/27/19 11:46 127/79 96 08/27/19 09:43 08/27/19 08:44 99 08/27/19 08:00 110/72 99 08/27/19 03:56 98/65 96 Weight Admit Weight 281 lb Weight 281 lb 7 oz I&O: 08/26/19 08/27/19 08/28/19 06:59 06:59 06:59 Intake Total 500 Output Total 750 300 Balance -250 -300 Result Diagrams: 08/24/19 04:32 08/24/19 04:32 Hospitalist ROS - Review of Systems Gastrointestinal: denies: nausea, vomiting, abdominal pain, diarrhea, constipation, melena, hematochezia, other Genitourinary: denies: dysuria, frequency, incontinence, hematuria, retention, other Musculoskeletal: denies: neck pain, shoulder pain, arm pain, back pain, hand pain, leg pain, foot pain, other - Medication Medications: Active Medications Generic Name Dose Route Start Last Admin Trade Name Freq PRN Reason Stop Dose Admin Artificial Tears 2 drop 08/26/19 09:51 08/26/19 17:34 Liquitears 15ml Bottle EA EYE 2 drop QIDPRN PRN Administration Dry Eyes Aspirin 300 mg 08/24/19 09:00 08/27/19 08:44 Aspirin MT 300 mg DAILY [facility] Administration Atorvastatin Calcium 10 mg 08/24/19 21:00 08/26/19 21:05 Lipitor PO 10 mg HS [facility] Administration Enoxaparin Sodium 120 mg 08/24/19 21:00 08/27/19 08:51 Lovenox SC 120 mg 0900,2100 [facility] Administration Ceftriaxone Sodium 2 gm/ 100 mls @ 200 mls/hr 08/24/19 14:00 08/26/19 15:03 Sodium Chloride IVPB 100 mls 1400 [facility] Administration Miscellaneous Medication 0 ml 08/26/19 09:52 08/26/19 17:36 Biotene Moisturizing Mouth MM 1 spr PRN PRN Administration Dry Mouth Pantoprazole Sodium 40 mg 08/26/19 09:00 08/27/19 08:50 Protonix PO 40 mg DAILY [facility] Administration Sodium Chloride 10 ml 08/23/19 15:50 08/27/19 08:51 Flush - Normal Saline IVF 10 ml PRN PRN Administration Saline Flush - Exam Neck: negative: supple, symmetric, no JVD, no thyromegaly, no lymphadenopathy, no carotid bruit, JVD Heart: negative: RRR, no murmur, no gallops, no rubs, normal peripheral pulses, irregular, diminshed peripheral pulses, murmur present, II/IV, III/IV Respiratory: negative: CTAB, no wheezes, no rales, no ronchi, normal chest expansion, no tachypnea, normal percussion, rales, rhonchi, tachypneic, wheezes Gastrointestinal: negative: soft, non-tender, non-distended, normal bowel sounds , no palpable masses, no hepatomegaly, no splenomegaly, no bruit, no guarding, no rigidity, tender to palpation, distended, diminished bowl sounds, voluntary guarding Hosp A/P (1) Acute ischemic right MCA stroke Code(s): I63.511 - CEREB INFRC D/T UNSP OCCLS OR STENOS OF RIGHT MID CEREB ART Status: Acute (2) Atrial fibrillation with RVR Code(s): I48.91 - UNSPECIFIED ATRIAL FIBRILLATION Status: Acute (3) Morbid obesity Code(s): E66.01 - MORBID (SEVERE) OBESITY DUE TO EXCESS CALORIES Status: Acute (4) UTI (urinary tract infection) Status: Acute (5) Hypertension Code(s): I10 - ESSENTIAL (PRIMARY) HYPERTENSION Status: Chronic Qualifiers: Hypertension type: essential hypertension Qualified Code(s): I10 - Essential (primary) hypertension (6) UTI (urinary tract infection) Status: Acute - Plan rate controlled on cardizam. continue AC. pt going for swallow eval. will continue abx for her uti. possible will try to remove alonso. 08/27 switched Cardizem to oral, will discontinue alonso. Awaiting approval for inpatient rehab.
[2019-08-27] MEDS: cefTRIAXone\\ROCEPHIN 2 GM in Sodium Chloride 0.9% 100 ML IVPB SCH (14:27)
[2019-08-27] MEDS: Atorvastatin Calcium 10 MG TAB PO SCH (21:56)
[2019-08-28] MEDS: Enoxaparin Sodium 120 MG/0.8 ML SYRINGE SC SCH (08:17)
[2019-08-28] MEDS: Dexamethasone 4 MG in Sodium Chloride 0.9% 50 ML IVPB SCH (08:17)
[2019-08-28] MEDS: Aspirin 300 MG Suppository PR SCH (08:17)
--- NOTE | 2019-08-28 09:56 | PDOC.CPN ---
- Subjective Date: 08/28/19 Time: 09:57 Interval history: The pt seen and examined. No overnight events. No cardiac complaints. She had stood up 5 times with PT this AM; - Objective Allergies/Adverse Reactions: Allergies Allergy/AdvReac Type Severity Reaction Status Date / Time sulfamethoxazole Allergy Verified 08/23/19 16:07 [From Bactrim] trimethoprim [From Bactrim] Allergy Verified 08/23/19 16:07 Visit Medications: Current Medications Acetaminophen (Tylenol) 650 mg PO Q4H PRN PRN Reason: Headache/Fever/Mild Pain (1-3) Acetaminophen (Tylenol) 650 mg AR Q4H PRN PRN Reason: Headache/Fever/Mild Pain (1-3) Artificial Tears (Liquitears 15ml Bottle) 2 drop EA EYE QIDPRN PRN PRN Reason: Dry Eyes Last Admin: 08/26/19 17:34 Dose: 2 drop Aspirin (Ecotrin) 81 mg PO DAILY [facility] Atorvastatin Calcium (Lipitor) 10 mg PO HS [facility] Last Admin: 08/27/19 21:56 Dose: 10 mg Carvedilol (Coreg) 3.125 mg PO BID-[facility] Dexamethasone (Decadron) 2 mg PO BID-[facility] Diltiazem HCl (Cardizem) 30 mg PO BID [facility] Last Admin: 08/28/19 08:17 Dose: 30 mg Enoxaparin Sodium (Lovenox) 120 mg SC 0900,2100 [facility] Last Admin: 08/28/19 08:17 Dose: 120 mg Guaifenesin/Dextromethorphan (Robitussin Dm) 15 ml PO Q4H PRN PRN Reason: Cough Hydralazine HCl (Apresoline) 10 mg SLOW IVP Q4H PRN PRN Reason: BP > 220/110 Ceftriaxone Sodium 2 gm/ (Sodium Chloride) 100 mls @ 200 mls/hr IVPB 1400 [facility] Last Admin: 08/27/19 14:27 Dose: 100 mls Labetalol HCl (Normodyne) 20 mg SLOW IVP Q1H PRN PRN Reason: BP > 220/110 Miscellaneous Medication (Biotene Moisturizing Mouth) 0 ml MM PRN PRN PRN Reason: Dry Mouth Last Admin: 08/26/19 17:36 Dose: 1 spr Ondansetron HCl (Zofran Odt) 4 mg PO Q6H PRN PRN Reason: Nausea/Vomiting Ondansetron HCl (Zofran) 4 mg IVP Q6H PRN PRN Reason: Nausea/Vomiting Pantoprazole Sodium (Protonix) 40 mg PO DAILY [facility] Last Admin: 08/28/19 08:17 Dose: 40 mg Senna/Docusate Sodium (Senokot S) 2 tab PO BID PRN PRN Reason: Constipation Sodium Chloride (Flush - Normal Saline) 10 ml IVF PRN PRN PRN Reason: Saline Flush Last Admin: 08/27/19 08:51 Dose: 10 ml Vital Signs & Weight: Vital Signs Temp Pulse Resp BP Pulse Ox 08/28/19 07:00 97.5 F L 94 16 144/96 H 96 08/28/19 04:00 98.7 F 96 16 145/79 H 95 Admit Weight 281 lb Weight 281 lb 7 oz - Physical Exam General: alert & oriented x3 Cardiac: irregularly regular Lungs: decreased breath sounds - Labs Result Diagrams: 08/24/19 04:32 08/24/19 04:32 Troponin/CKMB Troponin I Less than 0.010 ng/mL (< 0.028) 08/23/19 09:02 - Telemetry Supraventricular conduction: atrial fibrillation - Assessment/Plan Assessment/Plan: 1. Afib with RVR - well controlled HR with Diltiazem 30mg BID; will start Coreg 3.125mg BID from this AM; on Lovenox 120mg BID which will be changed to PO OAC at discharge 2. Acute ischemic right MCA stroke with Lt side weakness 3. HTN - stable 4. UTI 5. Morbid obesity MAR reviewed * Echo on 08/24/2019 with EF 50-55%, mod dilated LA, mod-severe TR, and dilated IVC * Pérez' pt Pt. seen and eval. by me. I agree with the A/P by the HAT LINER.Chest clear. Irreg/ irreg. rhythm.
[2019-08-28] MEDS ORDERED: Carvedilol 3.125 MG TAB PO SCH (10:00)
[2019-08-28] MEDS ORDERED: Bisacodyl 5 MG TAB PO PRN (10:37)
[2019-08-28] MEDS ORDERED: Bisacodyl 10 MG SUPP PR PRN (10:37)
--- NOTE | 2019-08-28 11:07 | CT ---
EXAM: CT Brain WO Con PROVIDED CLINICAL HISTORY: Stroke COMPARISON: 08/25/2019 FINDINGS: Right MCA distribution infarction is redemonstrated. There is no evidence for intracranial hemorrhage . Continued significant mass effect upon the right lateral ventricle with [id number] shift of the midline structures measuring about 9 mm. This is slightly increased with respect to the prior roseanne dy. The basilar cisterns remain patent. There is no ventriculomegaly. The extracranial soft tissues and osseous structures demonstrate a stable CT appearance. IMPRESSION: Redemonstration of large right MCA distribution infarction with mild increase in associated mass effe ct.
[2019-08-28] MEDS: cefTRIAXone\\ROCEPHIN 2 GM in Sodium Chloride 0.9% 100 ML IVPB SCH (14:51)
--- NOTE | 2019-08-28 16:54 | PDOC.HOSPP ---
- Subjective Encounter Date: 08/28/19 Encounter Time: 10:15 Subjective: pt up in bed no complains. - Objective Vital Signs & Weight: Vital Signs (12 hours) Temp Pulse Pulse Resp BP BP BP 08/28/19 15:36 97.6 F 91 16 137/87 08/28/19 12:00 120 H 18 142/91 H 08/28/19 11:00 97.8 F 99 18 113/60 08/28/19 09:33 94 113/66 148/86 H 08/28/19 07:00 97.5 F L 94 16 144/96 H Pulse Ox 08/28/19 15:36 98 08/28/19 12:00 08/28/19 11:00 96 08/28/19 09:33 08/28/19 07:00 96 Weight Admit Weight 281 lb Weight 281 lb 7 oz I&O: 08/27/19 08/28/19 08/29/19 06:59 06:59 06:59 Intake Total 500 625 Output Total 750 800 Balance -250 -175 Result Diagrams: 08/24/19 04:32 08/24/19 04:32 Hospitalist ROS - Review of Systems Cardiovascular: denies: chest pain, palpitations, orthopnea, paroxysmal noc. dyspnea, edema, light headedness, other Gastrointestinal: denies: nausea, vomiting, abdominal pain, diarrhea, constipation, melena, hematochezia, other Genitourinary: denies: dysuria, frequency, incontinence, hematuria, retention, other - Medication Medications: Active Medications Generic Name Dose Route Start Last Admin Trade Name Freq PRN Reason Stop Dose Admin Artificial Tears 2 drop 08/26/19 09:51 08/26/19 17:34 Liquitears 15ml Bottle EA EYE 2 drop QIDPRN PRN Administration Dry Eyes Atorvastatin Calcium 10 mg 08/24/19 21:00 08/27/19 21:56 Lipitor PO 10 mg HS CHRISTOPHER Administration Bisacodyl 10 mg 08/28/19 10:37 08/28/19 11:54 Dulcolax ME 10 mg DAILYPRN PRN Administration Constipation Diltiazem HCl 30 mg 08/27/19 21:00 08/28/19 08:17 Cardizem PO 30 mg BID CHRISTOPHER Administration Diltiazem HCl 5 mg 08/28/19 14:30 08/28/19 14:53 Cardizem SLOW IVP 08/28/19 17:00 5 mg NOW CHRISTOPHER Administration Ceftriaxone Sodium 2 gm/ 100 mls @ 200 mls/hr 08/24/19 14:00 08/28/19 14:51 Sodium Chloride IVPB 100 mls 1400 CHRISTOPHER Administration Miscellaneous Medication 0 ml 08/26/19 09:52 08/26/19 17:36 Biotene Moisturizing Mouth MM 1 spr PRN PRN Administration Dry Mouth Pantoprazole Sodium 40 mg 08/26/19 09:00 08/28/19 08:17 Protonix PO 40 mg DAILY CHRISTOPHER Administration Sodium Chloride 10 ml 08/23/19 15:50 08/27/19 08:51 Flush - Normal Saline IVF 10 ml PRN PRN Administration Saline Flush - Exam Neck: negative: supple, symmetric, no JVD, no thyromegaly, no lymphadenopathy, no carotid bruit, JVD Heart: negative: RRR, no murmur, no gallops, no rubs, normal peripheral pulses, irregular, diminshed peripheral pulses, murmur present, II/IV, III/IV Respiratory: negative: CTAB, no wheezes, no rales, no ronchi, normal chest expansion, no tachypnea, normal percussion, rales, rhonchi, tachypneic, wheezes Gastrointestinal: negative: soft, non-tender, non-distended, normal bowel sounds , no palpable masses, no hepatomegaly, no splenomegaly, no bruit, no guarding, no rigidity, tender to palpation, distended, diminished bowl sounds, voluntary guarding Extremities: negative: no cyanosis, no clubbing, no edema, 1+ LE edema, 2+ LE edema, clubbing Hosp A/P (1) Acute ischemic right MCA stroke Code(s): I63.511 - CEREB INFRC D/T UNSP OCCLS OR STENOS OF RIGHT MID CEREB ART Status: Acute (2) Atrial fibrillation with RVR Code(s): I48.91 - UNSPECIFIED ATRIAL FIBRILLATION Status: Acute (3) Morbid obesity Code(s): E66.01 - MORBID (SEVERE) OBESITY DUE TO EXCESS CALORIES Status: Acute (4) UTI (urinary tract infection) Status: Acute (5) Hypertension Code(s): I10 - ESSENTIAL (PRIMARY) HYPERTENSION Status: Chronic Qualifiers: Hypertension type: essential hypertension Qualified Code(s): I10 - Essential (primary) hypertension (6) UTI (urinary tract infection) Status: Acute - Plan rate controlled on cardizam. continue AC. pt going for swallow eval. will continue abx for her uti. possible will try to remove alonso. 08/27 switched Cardizem to oral, will discontinue alonso. Awaiting approval for inpatient rehab. 08/28 pt tried to have a BM was in afib with rvr, was given cardizem iv x1. ct brain wanted to make sure no bleeding for switching lovonox to eliquis. No bleed. will switch to eliquis. ct did indicate increase in mass effect. will continue decadorn iv for one more day then switch to oral on discharge. I have recommended to try ambulate the pt to see if she gets tachycardia for med adjustment. family updated.
[2019-08-28] MEDS ORDERED: Dexamethasone 1 MG TAB PO SCH (17:00)
[2019-08-28] MEDS: Carvedilol 3.125 MG TAB PO SCH (17:57)
[2019-08-28] MEDS: Dexamethasone 4 mg/ml Vial SLOW IVP SCH (20:50)
[2019-08-28] MEDS: Apixaban 5 MG TAB PO SCH (20:50)
[2019-08-28] MEDS: Atorvastatin Calcium 10 MG TAB PO SCH (20:50)
[2019-08-29 04:57] LABS: Hemoglobin 14.9 g/dL (12.0-16.0); Platelet Count 250 thou/uL (130-400)
[2019-08-29] MEDS: Apixaban 5 MG TAB PO SCH (08:46)
[2019-08-29] MEDS: Carvedilol 3.125 MG TAB PO SCH (08:47)
[2019-08-29] MEDS: Dexamethasone 4 mg/ml Vial SLOW IVP SCH (08:48)
[2019-08-29] MEDS ORDERED: Aspirin 81 mg Enteric Coated Tablet PO SCH (09:00)
--- NOTE | 2019-08-29 09:05 | PDOC.HOSPP ---
- Subjective Encounter Date: 08/29/19 Encounter Time: 09:30 Subjective: Patient with some tachycardia on monitor during PT, otherwise well controlled. No symptoms. - Objective Vital Signs & Weight: Vital Signs (12 hours) Temp Pulse Resp BP Pulse Ox 08/29/19 08:00 98.5 F 98 16 149/108 H 96 08/29/19 04:00 97.8 F 80 16 159/85 H 96 08/29/19 00:00 97.7 F 87 16 113/78 95 Weight Admit Weight 281 lb Weight 281 lb 7 oz I&O: 08/28/19 08/29/19 08/30/19 06:59 06:59 06:59 Intake Total 625 470 Output Total 800 850 Balance -175 -380 Result Diagrams: 08/29/19 04:02 08/29/19 04:02 Hospitalist ROS - Review of Systems Constitutional: denies: fever, chills Respiratory: denies: cough, dry, shortness of breath Cardiovascular: denies: chest pain, palpitations Gastrointestinal: denies: nausea, vomiting, abdominal pain Genitourinary: denies: dysuria, frequency - Medication Medications: Active Medications Generic Name Dose Route Start Last Admin Trade Name Freq PRN Reason Stop Dose Admin Apixaban 5 mg 08/28/19 21:00 08/29/19 08:46 Eliquis PO 5 mg BID CHRISTOPHER Administration Artificial Tears 2 drop 08/26/19 09:51 08/26/19 17:34 Liquitears 15ml Bottle EA EYE 2 drop QIDPRN PRN Administration Dry Eyes Aspirin 81 mg 08/29/19 09:00 08/29/19 08:46 Ecotrin PO 81 mg DAILY CHRISTOPHER Administration Atorvastatin Calcium 10 mg 08/24/19 21:00 08/28/19 20:50 Lipitor PO 10 mg HS CHRISTOPHER Administration Bisacodyl 10 mg 08/28/19 10:37 08/28/19 11:54 Dulcolax NC 10 mg DAILYPRN PRN Administration Constipation Carvedilol 3.125 mg 08/28/19 17:00 08/29/19 08:47 Coreg PO 3.125 mg BID-WM CHRISTOPHER Administration Dexamethasone 4 mg 08/28/19 21:00 08/29/19 08:48 Decadron SLOW IVP 4 mg BID CHRISTOPHER Administration Diltiazem HCl 30 mg 08/29/19 09:00 08/29/19 08:46 Cardizem PO 30 mg TID CHRISTOPHER Administration Ceftriaxone Sodium 2 gm/ 100 mls @ 200 mls/hr 08/24/19 14:00 08/28/19 14:51 Sodium Chloride IVPB 100 mls 1400 CHRISTOPHER Administration Miscellaneous Medication 0 ml 08/26/19 09:52 08/26/19 17:36 Biotene Moisturizing Mouth MM 1 spr PRN PRN Administration Dry Mouth Pantoprazole Sodium 40 mg 08/26/19 09:00 08/29/19 08:47 Protonix PO 40 mg DAILY CHRISTOPHER Administration Sodium Chloride 10 ml 08/23/19 15:50 08/29/19 08:48 Flush - Normal Saline IVF 10 ml PRN PRN Administration Saline Flush - Exam General Appearance: NAD, awake alert ENT: moist mucosa Heart: no murmur, no gallops, no rubs, irregular Respiratory: CTAB, no wheezes, no rales, no ronchi Gastrointestinal: soft, non-tender, non-distended, normal bowel sounds Neurological - other findings: left side weakness Psychiatric: normal affect, normal behavior Hosp A/P (1) Acute ischemic right MCA stroke Code(s): I63.511 - CEREB INFRC D/T UNSP OCCLS OR STENOS OF RIGHT MID CEREB ART Status: Acute (2) Atrial fibrillation with RVR Code(s): I48.91 - UNSPECIFIED ATRIAL FIBRILLATION Status: Acute (3) Cerebral edema Code(s): G93.6 - CEREBRAL EDEMA Status: Acute (4) UTI (urinary tract infection) Status: Acute Qualifiers: Urinary tract infection type: acute cystitis Plan: proteus (5) Hypertension Code(s): I10 - ESSENTIAL (PRIMARY) HYPERTENSION Status: Chronic Qualifiers: Hypertension type: essential hypertension Qualified Code(s): I10 - Essential (primary) hypertension (6) Morbid obesity Code(s): E66.01 - MORBID (SEVERE) OBESITY DUE TO EXCESS CALORIES Status: Chronic - Plan plan discussed w/ family Clinically stable. Transitioned to oral anticoagulants. No proven role for steroids in edema from ischemic stroke. Will d/c decadron. Only 5 days, so no need to taper. Will d/c to rehab today. Spoke with Dr. Adkins about the spikes of HR to 170 with PT that immediately came back down and were asymptomatic. He has already increased Coreg and Cardizem today, this can be very slowly titrated up at rehab. Ok to transfer to rehab from cardiac standpoint per Dr. Adkins.
[2019-08-29 11:49] VITALS: TEMP 98.7
[2019-08-29 11:59] VITALS: BP 139/93
[2019-08-29] MEDS: cefTRIAXone\\ROCEPHIN 2 GM in Sodium Chloride 0.9% 100 ML IVPB SCH (13:22)
--- NOTE | 2019-08-30 14:51 | DIS ---
DATE OF ADMISSION: 08/23/2019 DATE OF DISCHARGE: 08/29/2019 PRIMARY CARE PHYSICIANS: Dr. Alen Judge at [facility] and [facility] when in [facility]. While in [place], she sees a PA named Liliane. REASON FOR ADMISSION: Severe acute ischemic stroke. DIAGNOSES AT DISCHARGE: 1. Acute right middle cerebral artery ischemic stroke. 2. Atrial fibrillation with rapid ventricular rate. 3. Cerebral edema. 4. Urinary tract infection with Proteus. 5. Hypertension. 6. Morbid obesity. PROCEDURES: 1. CT of the brain without contrast showing evidence for acute infarction involving the majority of the MCA territory on the right without associated hemorrhage and mild midline shift from right to left. 2. Repeat CT scan multiple times showing re-demonstration of large right MCA distribution infarction and some increased edema and mass effect with [id number] shift of 9 mm. 3. Modified barium swallow showing some minimal penetration of thin liquid consistencies when using a straw. 4. Echocardiogram showing an ejection fraction of 50% to 55%, also with some [id number] tricuspid regurgitation and a dilated IVC. CONSULTATIONS: 1. Neurology, Dr. Guerrero. 2. Cardiology, Dr. Adkins. 3. Palliative Care. SUMMARY OF HOSPITAL COURSE: This is a 64-year-old white female with a past medical history of hypertension, hyperlipidemia, and mitral valve prolapse, who had some recent atrial fibrillation in the last 1 to 2 months. She was found down in her hotel room after knowing seeing her overnight. She was brought to the emergency room, had a majority of the MCA distribution on the right, showing evidence of stroke in the ER. The size of this infarct made her not a candidate for a clot retrieval therapy due to bleeding risk. She was treated with aspirin and admitted to the hospital. The patient had some significant weakness on her left side. She did have Physical Therapy and Speech Therapy work with her. She did start to move a little better with physical therapy and Speech Therapy determined safe diet for her of nectar thick liquids and ground textures with extra sauce and gravy. The patient did have atrial fibrillation with rapid ventricular rate on admission. Dr. Adkins was consulted. This was eventually controlled once and she was switched to oral medications. The patient was put on both diltiazem and carvedilol. She did have some problems with digoxin causing severe bradycardia, so her diltiazem and her carvedilol were slowly increased. She was still having some tachycardia with physical exertion only, but no symptoms from this and so she was cleared to go to rehab by Dr. Adkins from a Cardiology standpoint. She was accepted to inpatient rehabilitation at [facility]. The patient did have a Proteus UTI diagnosed during her hospitalization. This was not thought to be symptomatic. She was treated with IV Rocephin and this is being switched to Omnicef to complete a 10-day course of antibiotics. DISCHARGE MANAGEMENT: Discharged to [facility]. ACTIVITY: As tolerated. DIET: Healthy heart diet with Speech Therapy recommendations as above. THERAPY: Occupational, physical, and speech therapy. FOLLOWUP: The patient is to follow up with Cardiology as an outpatient. DISCHARGE MEDICATIONS: 1. Eliquis 5 mg twice a day, 60 tablets dispensed. 2. Omnicef 300 mg twice a day, 4 caps dispensed. 3. Aspirin 81 mg daily. 4. Atorvastatin 10 mg at night. 5. Dulcolax 10 mg daily as needed. 6. Cardizem 30 mg 3 times a day. 7. Carvedilol 3.125 mg twice a day. 8. Protonix 40 mg daily. TIME SPENT: Arranging the details of this discharge took 35 minutes. Job ID: [id number]
== END 2019-08-29 14:53 | DRG 64 ==
LOC: ERS 08:54 → 2SE 13:37
PROVIDERS: ADMIT Emergency Medicine; ATTEND Emergency Medicine
PROC: 3E0234Z Introduction of Serum, Toxoid and Vaccine into Muscle, Percutaneous Approach (ICD-10-PCS; principal; 2019-08-27)
DX: I63.511 Cerebral infarction due to unspecified occlusion or stenosis of right middle cerebral artery (principal); G93.6 Cerebral edema; N17.9 Acute kidney failure, unspecified; Z66 Do not resuscitate; G81.94 Hemiplegia, unspecified affecting left nondominant side; N30.00 Acute cystitis without hematuria; Z68.42 Body mass index [BMI] 45.0-49.9, adult; I48.91 Unspecified atrial fibrillation; E66.01 Morbid (severe) obesity due to excess calories; B96.4 Proteus (mirabilis) (morganii) as the cause of diseases classified elsewhere; R29.724 NIHSS score 24; R40.2362 Coma scale, best motor response, obeys commands, at arrival to emergency department; R40.2142 Coma scale, eyes open, spontaneous, at arrival to emergency department; R40.2252 Coma scale, best verbal response, oriented, at arrival to emergency department; R29.810 Facial weakness; R47.81 Slurred speech; E78.5 Hyperlipidemia, unspecified; I10 Essential (primary) hypertension; I34.1 Nonrheumatic mitral (valve) prolapse; Z23 Encounter for immunization; Z79.899 Other long term (current) drug therapy; Z90.49 Acquired absence of other specified parts of digestive tract
CPT/HCPCS: 36415; 36416; 70450; 74230; 80048; 80053; 80061; 80162; 81003; 81015; 82565; 84484; 85014; 85018; 85025; 85049; 85610; 85730; 87077; 87086; 87186; 90471; 90670; 93005; 93306; C9113; G0009; J0696; J1100; J1160; J1650; J2405; J3475; J3490